=== PATIENT | female | born 1935 | race Caucasian/White ===

== ENCOUNTER 2019-04-14 17:04 | Inpatient (IN) ==
[2019-04-14] MEDS ORDERED: DIPHTHERIA/TETANUS ADULT IM ONE (17:34)
[2019-04-14] MEDS ORDERED: DERMABOND TOP ONE (17:38)
--- NOTE | 2019-04-14 18:42 | Diag Imaging Result Doc PS360 ---
EXAM : CT HEAD/C-SPINE W/O CONTRAST HISTORY: syncope, head injury on Eliquis TECHNIQUE: 1. CT head without intravenous contrast 2. CT cervical spine without intravenous contrast COMPARISON: 07/20/2017 FINDINGS: Head: No parenchymal hemorrhage. No epidural or subdural hematoma. No subarachnoid hemorrhage. Prominent long-standing microvascular ischemic changes as well as atrophy. No mass identified on this noncontrasted exam. No hydrocephalus. No no skull fracture. Cervical spine: There is good alignment to the cervical spine. No precervical soft tissue swelling. No subluxation. No fracture. Moderate degenerative changes. IMPRESSION: Head: No hemorrhage. No injury. Cervical spine: No acute fracture. This exam was performed using automated exposure control, adjustment of mA or kV according to patient size, and/or use of iterative reconstruction technique. Electronically signed by Frederic Whitaker 04/14/2019 6:40 PM
--- NOTE | 2019-04-14 18:56 | PROVIDER DOCUMENTATION ---
This chart was entered by Holli Worrell Scribe, acting as scribe for Jose L Valera MD. HPI-Head Injury - General Source: patient - History of Present Illness-Head Injury Head Injury Location: reports: temporal (right side) Other injuries associated with incident:: reports: neck Quality of Pain: reports: aching Severity: reports: mild Onset/Duration: reports: just prior to arrival Method of Injury: reports: fell Any recent trauma/injury?: reports: minor, to head Loss of Consciousness: unsure Modifying Factors: worse with: palpation Injury Associated Symptoms: reports: denies symptoms Locality of Occurance: Home Similar Symptoms Previously?: Yes Recently seen or treated by another doctor?: No <Jose L Valera - Last Filed: 04/14/19 18:55> <Lesley Huntley - Last Filed: 04/14/19 22:06> - General Chief Complaint: Head Injury Stated Complaint: FALL Time Seen by Provider: 04/14/19 17:20 Allergies/Adverse Reactions: Patient Allergies Allergy/AdvReac Type Severity Reaction Status Date / Time ciprofloxacin [From Cipro] Allergy Mild RASH Verified 08/29/15 12:29 ciprofloxacin HCl * Allergy Mild RASH Verified 08/29/15 12:29 [From Cipro] fenofibrate nanocrystallized Allergy Mild RASH Verified 08/29/15 12:29 * [From Tricor] fenofibrate,micronized * Allergy Mild RASH Verified 08/29/15 12:29 [From Tricor] Penicillins Allergy Unknown Verified 07/20/17 16:49 sucralfate [From Carafate] AdvReac Intermediate NAUSEA Verified 08/29/15 12:29 warfarin sodium * AdvReac Intermediate ABDOMINAL Verified 08/29/15 12:29 [From Coumadin] PAIN metoclopramide AdvReac Mild NAUSEA Verified 08/29/15 12:29 norfloxacin [From Noroxin] AdvReac Mild RASH Verified 08/29/15 12:29 Home Medications: Home Medication List Medication Instructions Recorded Confirmed Last Taken Type Levothyroxine [Synthroid] 25 microgm PO DAILY 09/22/12 04/14/19 08/29/15 History Apixaban [Eliquis] 2.5 mg PO BID 04/25/13 04/14/19 08/28/15 History Esomeprazole Magnesium [Nexium] 40 mg PO DAILY 04/25/13 04/14/19 08/28/15 History Metoprolol [Lopressor] 50 mg PO DAILY 04/25/13 04/14/19 08/28/15 History Bupropion HCl 75 mg PO DAILY 08/29/15 04/14/19 08/28/15 History Sertraline HCl [Zoloft] 100 mg PO DAILY 08/29/15 04/14/19 08/28/15 History - History of Present Illness-Head Injury Nature of Presenting Problem: 83yof presents to ED by EMS cc syncope with injury to right confucianist and skin tear to back of right hand. Pt reports she was putting something on table in dining room, turned around and next thing she knew she was waking up on the floor. Pt is on Eliquis BID daily for Afib and CVA. Pt is A&Ox3 upon exam. (Jose L Valera) Review of Systems - Adult - REVIEW OF SYSTEMS - ADULT Constitutional: reports: see HPI. denies: chills, fever, fatique Eyes: reports: no symptoms reported Ears, Nose, Mouth & Throat: reports: no symptoms reported Cardiovascular: reports: no symptoms reported Respiratory: reports: no symptoms reported Gastrointestinal: reports: no symptoms reported Genitourinary: reports: no symptoms reported Musculoskeletal: reports: see HPI, neck pain, other (contusion to right confucianist) Integumentary: reports: see HPI, other (skin tear to back of right hand) Neurological: reports: see HPI, syncope Psychiatric: reports: no symptoms reported Endocrine: reports: no symptoms reported Hematologic/Lymphatic: reports: no symptoms reported Allergic/Immunologic: reports: no symptoms reported All Other Systems: Reviewed and Negative <Jose L Valera - Last Filed: 04/14/19 18:55> Past History - Adult - PAST MEDICAL HISTORY-ADULT Review of Records: reports: Old Records Reviewed, Nursing Assessment Review, Medications Reviewed, Social history reviewed & non-contributory. Major Childhood Illnesses: reports: denies history Cardiovascular: reports: HTN Respiratory: reports: denies history Gastrointestinal: reports: denies history Obstetrical/Gynecological: reports: denies history Genitourinary: reports: denies history Musculoskeletal: reports: denies history Neurological: reports: CVA Endocrine/Immune: reports: thyroid disorder Other Conditions: reports: denies history - PRIOR SURGERIES/PROCEDURES Surgical/Procedure History: reports: cholecystectomy, hysterectomy, orthopedic (extremity) (total knee), other (thyroidectomy,skin CA removed, Left nephrectomy) - IMMUNIZATION STATUS Childhood Immunizations: See Nurse Assessment Flu Vaccine: See Nurse Assessment - FAMILY HISTORY Family History: reviewed, not pertinent <Jose L Valera - Last Filed: 04/14/19 18:55> Physical Exam- Neurological - Physical Exam-Neuro Initial Vital Signs Reviewed: Yes General Appearance: appears well, alert, no apparent distress. negative: anxious, combative Eye Exam: bilateral eye: normal inspection, PERRL HENMT: normocephalic/atraumatic, moist mucous membranes, hearing deficit. negative: angioedema Head Injury: contusions (to right confucianist). negative: active bleeding, raccoon eyes Neck: C-spine tenderness Respiratory: chest non-tender, lungs clear, normal breath sounds. negative: wheezing Cardiovascular: normal peripheral pulses, regular rate, rhythm, no edema. negative: bradycardia, tachycardia Abdominal Exam: normal bowel sounds, non tender, soft. negative: rebound Extremity: normal inspection, normal capillary refill. negative: deformity seed expert Exam: normal hearing, normal speech, PERRL. negative: facial droop Motor/Sensory: no motor deficit, no sensory deficit Neurologic: seed expert II-XII nml as tested, grossly normal, no motor/sensory deficits Integumentary: other (skin tear to back of right hand). negative: diaphoresis, jaundice, rash Psych/Mental Status: normal mood/affect, oriented x 3. negative: anxious, disheveled - Glascow Coma Scale Best Eye Response: (4) open spontaneously Best Verbal Response: (5) oriented Best Motor Response: (6) obeys commands Total Glascow Score: 15 <Jose L Valera - Last Filed: 04/14/19 18:55> Progress - REASSESSMENT Reassessment #1 Time Reassessed: 18:45 Status: unchanged (imaging wnl: all labs pending) - CHANGE OF SHIFT REPORT (ED Provider) 1 Report Given and Care Transferred to:: Dr. Huntley Time of Transfer: 19:00 <Jose L Valera - Last Filed: 04/14/19 18:55> - PLAN OF CARE/RESULTS Result Diagrams: 02/08/20 18:50 04/14/19 18:50 - CONSULTS/PCP/HOSPITALIST Notification #1 *Consult/PCP/Hospitalist*: Dr Calix Time Discussed: 22:04 Consult Disposition: Admit <Lesley Huntley - Last Filed: 04/14/19 22:06> - PLAN OF CARE/RESULTS Progress/Plan/Lab Results: Vital Signs - 8 hr 04/14/19 17:28 04/14/19 19:04 04/14/19 21:39 Temperature 98.3 F Pulse Rate 79 141 H Pulse Rate [Sitting] 89 Pulse Rate [Standing] 85 Pulse Rate [Supine] 93 H Respiratory Rate 16 16 Blood Pressure 174/115 181/91 Blood Pressure [Sitting] 193/95 Blood Pressure [Standing] 168/65 Blood Pressure [Supine] 138/100 O2 Sat by Pulse Oximetry 98 Laboratory Results - last 24 hr 04/14/19 04/14/19 04/14/19 18:50 18:50 20:50 WBC 9.27 RBC 4.97 Hgb 14.0 Hct 43.5 MCV 87.5 MCH 28.2 MCHC 32.2 L RDW Std Deviation 14.7 H Plt Count 280 MPV 10.2 Immature Gran % (Auto) 0.2 Neut % (Auto) 82.2 H Lymph % (Auto) 11.0 L Shoshone % (Auto) 5.3 Eos % (Auto) 1.1 Baso % (Auto) 0.2 Immature Gran # (Auto) 0.02 Neut # (Auto) 7.62 H Lymph # (Auto) 1.02 L Shoshone # (Auto) 0.49 Eos # (Auto) 0.10 Baso # (Auto) 0.02 Sodium 142 Potassium 4.5 Chloride 106 Carbon Dioxide 24 L Anion Gap 12 BUN 22 Creatinine 1.0 H Estimated GFR/1.73 m2 53 BUN/Creatinine Ratio 22 Glucose 128 H Calculated Osmolality 288 Calcium 9.1 Total Bilirubin 0.31 AST 15 ALT 7 L Alkaline Phosphatase 105 H Total Protein 6.8 Albumin 4.0 Globulin 2.8 Albumin/Globulin Ratio 1.4 Urine Source CATH Urine Color YELLOW Urine Turbidity CLEAR Urine pH 6.0 Ur Specific Ferris 1.017 Urine Protein NEGATIVE Ur Glucose (Stick) NEGATIVE Ur Ketones (Stick) NEGATIVE Urine Blood TRACE A Urine Nitrite NEGATIVE Urine Bilirubin NEGATIVE Urobilinogen Dipstick NORMAL Urine Leukocytes LARGE A Urine WBC (Auto) TNTC A Urine RBC (Auto) <10 U Epithel Cells (Auto) <10 Urine Bacteria (Auto) 4+ Orders Category Date Time Status ED: Orthostatic Vital Signs (E as directed Care 04/14/19 19:36 Active Misc. NRSG Communication Order DIRECTED Care 04/14/19 17:37 Active CHEST-2 VIEWS [RAD] Stat Exams 04/14/19 19:[address] HEAD/C-SPINE W/O CONTRAST [CT] Stat Exams 04/14/19 17:34 Completed CBC WITH DIFF [HEME] Stat Lab 04/14/19 18:50 Completed CMP [COMPREHENSIVE METABOLIC PANEL] [CHEM] Stat Lab 04/14/19 18:50 Completed URINALYSIS W/POSS RFLX CULT [URINALYSIS] Stat Lab 04/14/19 20:50 Completed URINE CULTURE [RM] Routine Lab 04/14/19 20:50 Received Cyanoacrylate Tissue Adhesive [Dermabond] Med 04/14/19 17:38 Discontinued 1 each TOP NOW ONE Diphtheria/Tetanus Adult Med 04/14/19 17:34 Discontinued 0.5 ml IM .ONCE ONE Neomycin/Bacitrcn/Polymyx Oint [Neosporin Ointment Med 04/14/19 19:45 Discontinued Packet] 2 each TOP NOW ONE EKG [EKG] Stat Ther 04/14/19 17:38 Ordered Patient signed out to me pending labs and dispo. Patient with UTI. Went in to speak with daughters. She is on eliquis and has a hx of CVA. She is still complaining of some dizziness and LOVELACE. Spoke to daughters about UTI as wlel. They state she lives with her lederly by themselves. THey are concerned about her fall precuations. Would prefer if she stayed in the hospital for atleast observation and possible rehab placement. Spoke to Dr Calix, program consultant for hosp who accepted patient for admission. Further orders to be placed by their team. (Lesley Huntley) Departure - Departure Date of Disposition Decision: 04/14/19 Certified Medical Emergency: Emergent - Critical Care Note This patient required my direct & personal management of CC.: No <Jose L Valera - Last Filed: 04/14/19 18:55> - Departure Time of Disposition Decision: 22:02 <Lesley Huntley - Last Filed: 04/14/19 22:06> - Departure DIAGNOSIS: Dizziness, Anticoagulant long-term use, Head injury, UTI (urinary tract infection) Disposition: ADMITTED INPATIENT 09 Condition: Stable Additional Instructions: ED Follow Up Instructions: You have been treated by a care provider in the Emergency Department. These instructions are being provided to you so you can have an understanding of how to care for yourself upon discharge. Upon discharge from the Emergency Department, you are responsible for making arrangements for follow-up care by a physician of your choice. Take all prescribed medications as directed. Return to the Emergency Department immediately for any new or worsening symptoms. You may call the Physician Referral phone number at [phone] to obtain a list of Physicians who are taking new patients. Referrals and Follow-Ups: Donn Orourke DO [Primary Care Provider] - Attestation - Physician/ JAYDEN Attestation Patient care was provided by Advanced Practice Provider:: No The physician spent face to face time with patient:: Yes Advanced Practice Provider documentation review:: Supervising physician onsite and consulted in the evaluation and care of this patient. The physician did have a face to face encounter with the patient. <Jose L Valera - Last Filed: 04/14/19 18:55> This chart was documented by the indicated scribe, (Holli Worrell Scribe) and accurately reflects the services I performed and decisions made by me, Jose L Valera MD, as attested by the provider's signature.
[2019-04-14 19:14] LABS: BASO# 0.02 X1000 (0.0-0.2); BASO% 0.2 % (0.0-0.8); EOS% 1.1 % (0.0-10.0); HEMATOCRIT 43.5 % (37.0-47.0); IMM GRAN# 0.02 X1000 (0.0-0.04); IMM GRAN% 0.2 % (0.0-0.5); LYMPH# 1.02 X1000 (1.2-3.4); MCH 28.2 PG (27-31); MCHC 32.2 g/dL (33-37); MCV 87.5 FL (81-99); MONO# 0.49 X1000 (0.11-0.59); MONO% 5.3 % (1.7-9.3); MPV 10.2 FL (7.4-10.4); NEUT# 7.62 X1000 (1.4-6.5); NEUT% 82.2 % (42.2-75.2); PLT 280 X1000 (130-400); RBC 4.97 XMIL (4.2-5.4); RDW 14.7 % (11.5-14.5); WBC 9.27 X1000 (4.8-10.8)
[2019-04-14 19:33] LABS: ALB/GLOB RATIO 1.4; CALCIUM 9.1 mg/dL (8.8-10.2); POTASSIUM 4.5 mmol/L (3.5-5.1); TOTAL BILIRUBIN 0.31 mg/dL (0.20-1.00); TOTAL PROTEIN 6.8 g/dL (6.3-8.3)
[2019-04-14] MEDS ORDERED: NEOSPORIN OINTMENT PACKET TOP ONE (19:45)
--- NOTE | 2019-04-14 20:10 | Diag Imaging Result Doc PS360 ---
EXAM: CHEST-2 VIEWS HISTORY: syncope vs fall TECHNIQUE: Two views COMPARISON: 04/25/2013 FINDINGS: The lungs are well expanded. No contusion. No pneumothorax. The heart is not enlarged. The vessels are not distended. There are no infiltrates. Tiny left effusion. No compressed thoracic vertebra. IMPRESSION: Tiny left pleural effusion. Electronically signed by Frederic Whitaker 04/14/2019 8:08 PM
[2019-04-14 21:12] LABS: URINE SOURCE CATH
[2019-04-14 21:22] LABS: BILIRUBIN URINE NEGATIVE (NEGATIVE); BLOOD URINE TRACE (NEGATIVE); COLOR YELLOW; GLUCOSE URINE NEGATIVE (NEGATIVE); KETONE URINE NEGATIVE (NEGATIVE); LEUKOCYTES URINE LARGE (NEGATIVE); NITRITE URINE NEGATIVE (NEGATIVE); PROTEIN URINE NEGATIVE (NEGATIVE); SP GRAVITY URINE 1.017; TURBIDITY URINE CLEAR (CLEAR); UROBILINOGEN URINE NORMAL (NORMAL)
[2019-04-14 21:24] LABS: UR EPITHELIAL CELLS <10 /HPF (<10); URINE BACTERIA 4+ /HPF; URINE RBC <10 /HPF (<10); URINE WBC TNTC /HPF (<10)
[2019-04-14] MEDS ORDERED: NS 1,000 ML IV ONE (22:03)
[2019-04-14] MEDS ORDERED: ROCEPHIN 1 GM in NS 50 ML IV SCH (22:03)
[2019-04-14] MEDS ORDERED: ZOFRAN IV ONE ×2 (22:14→22:15)
--- NOTE | 2019-04-14 23:44 | HISTORY AND PHYSICAL ---
REASON FOR ADMISSION: Syncope and head injury. PRIMARY CARE PHYSICIAN: Donn Orourke DO. PRESENT ILLNESS: Ms Maria Del Rosario Gutierrez is an 83-year-old white female with past medical history of atrial fibrillation, hypertension and she is also hard of hearing. She reports while she was trying to get into her kitchen from her garage, she felt lightheaded, blacked out and hit the right side of her head against the table. She recalls when she came to that her and the caregiver were standing around her. EMS was called and they brought her in. She reports that she has had a right-sided headache, which has gotten progressively worse over the last few hours. By the time I got into the room to see her, she has been throwing up. Denies any visual complaints. No focal neurological complaints or weakness, numbness or tingling. No palpitations. No antecedent or subsequent palpitations or chest pain. Otherwise, she denies any antecedent complaints of shortness of breath, lower extremity swelling, PND, orthopnea, cough, fever, chills, GI or complaints. Polyuria or polydipsia or bleeding from any orifice. REVIEW OF SYSTEMS: Twelve system review was done, positive findings per HPI. ALLERGIES: Cipro, penicillins, Carafate, warfarin, Reglan, Tricor. HOME MEDICATIONS: Eliquis 2.5 b.i.d., Nexium 40 mg daily, metoprolol 50 mg daily, Wellbutrin 75 mg daily, Zoloft 100 mg daily, Synthroid 25 mcg daily. FAMILY HISTORY: Notable for coronary artery disease. SOCIAL HISTORY: Does not smoke, drink, or use illicit drugs. Lives with her . SURGICAL HISTORY: Hysterectomy, cholecystectomy, total knee replacement. DIAGNOSTIC DATA: White count 9000, hemoglobin and hematocrit 14 and 40, platelets 280,000; 82% neutrophils. BUN is 22, creatinine 1.0. Glucose 128, alkaline phosphatase 105. Urinalysis shows too numerous to count WBCs with 4+ bacteria. Chest film, tiny left pleural effusion. CT head and C-spine shows no acute intracranial injury. C-spine shows no acute fracture. PHYSICAL EXAMINATION: VITAL SIGNS: Her initial blood pressure supine 138/100, heart rate 93. No orthostatics noted. HEAD: Normocephalic. She has slight bruising on the right advent. No overt swelling noted. EYES: JENNIFER, EOMI. Anicteric and not pale. There is some very mild bruising of the right infraorbital area. No tenderness in the left advent area. NEUROLOGIC: Cranial nerves 2-12 are grossly intact. She has no focal neurological deficits appreciated. Strength is 4/5 in all extremities. ENT: Oral exam is grossly normal. Some cyanosis. NECK: Supple. No JVD or carotid bruit. No thyromegaly. CHEST: Clear when auscultated with good air entry both lung weiss. CARDIOVASCULAR: First and 2nd heart sounds heard. No gallops, murmurs, rubs. Rhythm is irregular. ABDOMEN: Full, soft, nontender. No organomegaly. Bowel sounds are normal. RECTAL: Deferred. EXTREMITIES: Good distal pulse volumes which are irregular, symmetrical. No edema, clubbing or cyanosis noted. SKIN: Intact. No breakdown, lesion, erythema. MUSCULOSKELETAL: Grossly normal. ASSESSMENT: 1. Syncope, etiology yet to be determined. 2. Head injury/concussion. 3. Atrial fibrillation. 4. Hypertension. 5. Urinary tract infection. PLAN: Because of patient's sudden vomiting and worsening headache, I have ordered a repeat CT scan to rule out an extradural hematoma. If this is positive, she will need to be sent to [facility]. Otherwise, if it is negative, we will admit patient to a step-down unit and do close neurological checks on the patient. This is primarily due to the fact that the patient is on anticoagulation and she has an injury to the right temporal side of her head, which potentially could increase the risk for extradural hematoma due to the possibility of a middle meningeal artery tear. For now, we will hold anticoagulation over the next 24 to 48 hours. Consult Cardiology for assistance in working up syncope. Withhold also SSRIs, which can put theoretically increased bleeding risk in the short term. Ideally, an MRI would have been the best choice to image for extradural hematoma, this is more sensitive, but we do not have this test at this time of day in our facility. Rocephin will be started for UTI. Cultures need to be followed. cc: MD Donn Mistry, DO
[2019-04-15] MEDS ORDERED: ZOFRAN IV PRN (01:07)
[2019-04-15] MEDS ORDERED: TYLENOL PO PRN (01:07)
--- NOTE | 2019-04-15 01:55 | EKG Report ---
Test Performed on : 04/15/2019 00:26:56 AM Test Reason : syncope Blood Pressure : / mmHG Vent. Rate : 099 BPM Atrial Rate : 101 BPM P-R Int : 000 ms QRS Dur : 068 ms QT Int : 380 ms P-R-T Axes : 000 001 -53 degrees QTc Int : [address] & T wave abnormality, consider anterior ischemia Abnormal ECG When compared with ECG of 29-AUG-2015 12:19, Nonspecific T wave abnormality now evident in Inferior leads T wave inversion more evident in Anterior leads QT has lengthened Confirmed by Johnny CLAY, MMarcus Grider ([id number]) on 04/16/2019 4:14:27 PM
[2019-04-15] MEDS: PRILOSEC PO SCH (06:15)
[2019-04-15 06:33] LABS: BASO# 0.02 X1000 (0.0-0.2); BASO% 0.2 % (0.0-0.8); EOS# 0.02 X1000 (0.0-0.7); EOS% 0.2 % (0.0-10.0); HEMATOCRIT 40.5 % (37.0-47.0); HEMOGLOBIN 12.9 g/dL (12.0-16.0); IMM GRAN# 0.02 X1000 (0.0-0.04); IMM GRAN% 0.2 % (0.0-0.5); LYMPH# 1.04 X1000 (1.2-3.4); LYMPH% 12.4 % (20.5-51.1); MCHC 31.9 g/dL (33-37); MONO# 0.47 X1000 (0.11-0.59); MONO% 5.6 % (1.7-9.3); MPV 10.3 FL (7.4-10.4); NEUT# 6.84 X1000 (1.4-6.5); NEUT% 81.4 % (42.2-75.2); PLT 253 X1000 (130-400); RDW 14.6 % (11.5-14.5); WBC 8.41 X1000 (4.8-10.8)
[2019-04-15] MEDS: NS 1,000 ML IV SCH ×2 (07:17→16:07)
[2019-04-15 07:42] LABS: CALCIUM 8.5 mg/dL (8.8-10.2); CREATININE 0.9 mg/dL (0.5-0.9); POTASSIUM 4.3 mmol/L (3.5-5.1)
--- NOTE | 2019-04-15 07:45 | Diag Imaging Result Doc PS360 ---
EXAM: CT HEAD W/O CONTRAST 04/14/2019 HISTORY: fall today, nausea, vomiting, rescan TECHNIQUE: This exam was performed using automated exposure control, adjustment of mA or kV according to patient size, and/or use of iterative reconstruction technique. COMMENT: There is calcification and slight dolichoectasia of the right vertebral artery. This was also the case at the time the previous study at 1827 and than on 07/20/2017. There are calcifications in the internal carotid arteries. There are marked patchy periventricular and subcortical white matter lucencies bilaterally with patchy lucencies in the internal capsules and basal ganglia and thalami. No evidence of bleed or abnormal extra-axial fluid collection is present. The visualized paranasal sinuses are clear. The calvarium is intact. IMPRESSION: Chronic ischemic microvascular changes and atherosclerotic changes. No evidence of acute intracranial disease. Electronically signed by Robles Morrissey 04/15/2019 7:43 AM
[2019-04-15] MEDS: LOPRESSOR PO SCH (08:39)
[2019-04-15] MEDS: ROCEPHIN 1 GM in NS 50 ML IV SCH (09:32)
--- NOTE | 2019-04-15 10:12 | PROGRESS NOTE ---
DATE: 04/15/2019 SUBJECTIVE: Patient is very hard of hearing. Reports that she is not having any headache. She also denies any dysuria. OBJECTIVE: Vital Signs: Temperature 98.7 degrees, heart rate 72, respiratory rate 18, blood pressure 159/84, O2 saturation 99% on room air. General Examination: This is an 83-year-old, female lying in bed, in no acute distress. Cardiovascular Examination: Irregularly irregular heart rhythm. Respiratory Examination: Clear bilaterally to auscultation. No work of breathing or using any accessory muscles. Abdomen: Soft, nontender to palpation. Bowel sounds present. No organomegaly. Extremities: No clubbing or cyanosis. Peripheral pulses present in both legs. Neurological Examination: The patient is very hard of hearing but followed commands. Moves 4 extremities. Laboratory Data: CBC is okay with hemoglobin 12.9. BMP is also okay with creatinine of 0.9. ASSESSMENT AND PLAN: 1. Syncope of unknown source. That is one reason why this patient was admitted to the hospital so cardiology had been consulted at admission. We will follow recommendations. The patient has chronic atrial fibrillation. 2. Head injury with concussion. Patient has been on Eliquis but that has been held. We have done two CT scans of the head and that did not show any signs of bleeding. We will continue to monitor. 3. Atrial fibrillation. Heart rate is well controlled. That is a chronic condition but we have held anticoagulation at this point. 4. Hypertension. Blood pressure is under control. We will continue with the same management. 5. Urinary tract infection. We will continue with Rocephin. Urine culture is pending. cc: Luis Enrique Cooper MD
--- NOTE | 2019-04-15 12:42 | ECHO REPORT ---
ORDER DATE: 04/15/2019 INTERPRETING PHYSICIAN: Dr. Chandan Jeff. ECHOCARDIOGRAPHIC MEASUREMENTS: 1. Interventricular septum 1.1. 2. Left ventricular posterior wall 1.0. 3. Diastolic diameter 4.0. 4. Left atrium 4.3. 5. Aorta 3.2. SUMMARY OF THE 2-DIMENSIONAL IMAGIN. Aortic valve leaflets were trileaflet, mildly sclerosed, opening normally. 2. Pulmonic valve was normal. There is trace pulmonary regurgitation. 3. Tricuspid valve was normal. 4. Mitral valve was normal. 5. There is biatrial enlargement. 6. Peak velocity across the aortic valve less than 2 m/sec. There is no aortic stenosis. 7. There is mild aortic regurgitation. 8. There is [id number]-[id number] tricuspid regurgitation. Peak velocity across the tricuspid valve was 3.2 m/sec. 9. Pulmonary artery systolic pressure of 45 mmHg. 10. Atrial fibrillation was noted. 11. There is mild mitral regurgitation. 12. [id number]-[id number]-[id number] tricuspid regurgitation. 13. Normal left ventricular cavity size. Estimated ejection fraction of 55%. 14. Endocardium not well visualized in all views. 15. There is no pericardial effusion or obvious intracardiac mass or thrombus seen. cc: MD Robert Dunlap MD
--- NOTE | 2019-04-15 14:40 | CARDIOLOGY CONSULTATION ---
DATE: 04/15/2019 REASON FOR ADMISSION: Patient is admitted with syncope. HISTORY OF PRESENT ILLNESS: This is an 83-year-old lady with a history of hypertension, atrial fibrillation, history of stroke in the past. She went into her kitchen from the garage. She felt lightheaded and blacked out. Hit the right side of her head against the table. EMS was called and brought in. She had a CT scan done. She had complained of headaches. CT scan was negative for any obvious intracranial pathology. At the time of my examination, she does not complain of any headaches. She denies any chest pain. No associated palpitations with this episode of syncope. She had a similar episode of syncope about 3 to 4 years back. REVIEW OF SYSTEM: A 14-point review of systems was done. GI System: There is no history of nausea, vomiting, diarrhea. There is no history of hematemesis or melena. Central nervous system: No focal weakness to suggest a CVA or TIA. Genitourinary System: There is no dysuria or hematuria. PAST MEDICAL HISTORY: 1. Hypertension. 2. Chronic atrial fibrillation. 3. History of CVA in the past. 4. Gastroesophageal reflux disease. ALLERGIES: She is allergic to Cipro, penicillin, Coumadin, Reglan, Tricor, and Carafate. HOME MEDICATIONS: Eliquis 2.5 mg b.i.d., Nexium 40, metoprolol 50, Wellbutrin 75, Zoloft 100, Synthroid 25. SOCIAL HISTORY: She does not smoke. Does not drink. PAST SURGICAL HISTORY: Other surgical history includes total knee replacement, cholecystectomy, hysterectomy. PHYSICAL EXAMINATION: Vital signs: Blood pressure was 138/100. Cardiovascular system: First and second heart sounds were heard. There was no S3 gallop. Respiratory System: Normal air entry. There are no crepitations or rhonchi. Abdomen: Soft, nontender. There was no guarding or rigidity. Bowel sounds were heard. Central nervous system: Alert. Was hard of hearing. No obvious focal neurological deficit. Detailed central nervous system examination not performed. Skin: Mild bruising in the right infraorbital area noted. ASSESSMENT AND PLAN: 1. Ms. Maria Del Rosario Gutierrez is an 83-year-old lady with a history of atrial fibrillation, chronic, hypertension, history of CVA in the past. Has a urinary tract infection. Had a syncopal episode, indeterminate etiology. From a cardiac standpoint, cardiac enzymes are negative. She is in atrial fibrillation. So far, no bradyarrhythmias noted. We will get an echocardiogram. In addition, we will get a Cardiolite stress test Lexiscan to rule out ischemia. We will also get carotid Doppler. 2. Hypertension. Continue with home medication. 3. Atrial fibrillation. She is anticoagulated. I have not made any changes. 4. She has a urinary tract infection. Treatment as planned. Thank you for the consult. cc: MD LEDA Dunlap
[2019-04-16] MEDS: NS 1,000 ML IV SCH ×4 (00:27→21:10)
[2019-04-16] MEDS: PRILOSEC PO SCH (06:21)
--- NOTE | 2019-04-16 07:22 | EKG Report ---
Test Performed on : 04/16/2019 06:55:00 AM Test Reason : fall Blood Pressure : / mmHG Vent. Rate : 077 BPM Atrial Rate : 357 BPM P-R Int : 000 ms QRS Dur : 078 ms QT Int : 450 ms P-R-T Axes : 000 023 025 degrees QTc Int : 509 ms Atrial fibrillation. with premature ventricular or aberrantly conducted complexes. Low voltage QRS Cannot rule out Anterior infarct , age undetermined Abnormal ECG When compared with ECG of 15-APR-2019 00:26, (Unconfirmed) Nonspecific T wave abnormality, improved in Inferior leads T wave inversion no longer evident in Anterior leads Confirmed by Johnny CLAY, Janes Grider ([id number]) on 04/16/2019 4:15:18 PM
--- NOTE | 2019-04-16 08:31 | PROGRESS NOTE ---
DATE: 04/16/2019 SUBJECTIVE: Patient reports feeling okay. No more episodes of loss of consciousness. The patient is very hard of hearing. No acute issues noted as per nursing staff overnight. OBJECTIVE: Vital Signs: Temperature 98.8 degrees, heart rate 73, respiratory rate 18, blood pressure 134/60, O2 saturation 100% on room air. General Examination: This is an 83-year-old, female lying in bed, in no acute distress. Cardiovascular Examination: Irregularly irregular heart rhythm. No murmurs, gallops, or rubs. Respiratory Examination: Clear bilaterally to auscultation. No work of breathing or using accessory muscles. Abdomen: Soft, nontender to palpation. Bowel sounds present. No organomegaly. Extremities: No clubbing, cyanosis, or edema. Peripheral pulses present in both legs. Neurological Examination: The patient is very hard of hearing but followed commands. Moves 4 extremities. Laboratory Data: From yesterday, CBC and BMP were completely okay. ASSESSMENT AND PLAN: 1. Syncope. Patient has been evaluated by cardiology. Considering history of chronic atrial fibrillation, hypertension, and cerebrovascular accident in the past, they will order a Cardiolite stress test Lexiscan to rule out ischemia. Also, carotid Doppler has been ordered. We will follow recommendations. As we mentioned before, patient has not had any more episodes of syncope since she was admitted to the hospital. 2. Head injury and concussion. The patient has been on Eliquis. Clinically, this patient has been okay. Eliquis has been held. Considering that this patient is stable right now, I think we can restart Eliquis today. 3. Chronic atrial fibrillation. Heart rate is well controlled. We are going to restart anticoagulation today. 4. Hypertension. Blood pressure is under control. We will continue with the same management. 5. Urinary tract infection. The urine culture shows gram-negative rods but the final sensitivity is not available yet. We will continue to monitor. 6. Disposition. I think at this point, the patient is much more stable. We will see what the Lexiscan stress test shows and we will go from there. cc: Luis Enrique Cooper MD
[2019-04-16] MEDS ORDERED: LEXISCAN ONE (11:01)
[2019-04-16] MEDS ORDERED: AMINOPHYLLINE ONE (11:22)
[2019-04-16] MEDS: ELIQUIS PO SCH ×2 (13:15→21:09)
[2019-04-16] MEDS: LOPRESSOR PO SCH (13:15)
[2019-04-16] MEDS: ROCEPHIN 1 GM in NS 50 ML IV SCH (13:15)
--- NOTE | 2019-04-16 14:16 | Diag Imaging Result Document ---
PROCEDURE NAME: MYOCARDIAL PERF SCAN, STR/REST - 04/16/2019 INDICATION: Fall. PROCEDURES PERFORMED: 1. Lexiscan stress. 2. One-day stress/rest myocardial perfusion imaging (rest dose 11.7 millicuries, stress dose 35 mCi). LEXISCAN STRESS RESULTS: 1. Baseline EKG appears to show atrial fibrillation. Low voltage. 2. Lexiscan stress not demonstrating clear evidence of ischemic related EKG changes or significant arrhythmias. Occasional PVCs versus aberrantly conducted beats were noted. PERFUSION IMAGING RESULTS: 1. No evidence of abnormal extracardiac uptake. 2. TID ratio is 1.14. On review of splash images there is no evidence of transient ischemic dilatation. 3. Perfusion imaging demonstrates normal homogenous uptake of radiotracer throughout the myocardial segments. No evidence of stress-related defects. 4. Normal ejection fraction of 67%. The end-diastolic volume is 38 and end-systolic volume 13. Normal wall motion is noted. cc: MD Chandan Lea MD
[2019-04-17] MEDS: NS 1,000 ML IV SCH (05:30)
[2019-04-17] MEDS: PRILOSEC PO SCH (06:05)
[2019-04-17 07:57] VITALS: BP 173/100
[2019-04-17] MEDS: ELIQUIS PO SCH (09:15)
[2019-04-17] MEDS: ROCEPHIN 1 GM in NS 50 ML IV SCH (09:15)
[2019-04-17] MEDS: LOPRESSOR PO SCH (09:15)
--- NOTE | 2019-04-17 13:46 | Carotid Study ---
DATE: 04/16/2019 REQUESTING PHYSICIAN: Dr. Jeff. SENIOR SOFTWARE MANAGER: Alfred. INDICATIONS: Syncope. Previous comparison from 09/23/2012. EQUIPMENT: [employer] Vivid E9 ultrasound system a 9 L-D transducer. FINDINGS: Complete diagram of ultrasound images can be seen and scanned in the patient's medical record. The peak systolic velocity done on the right side in the proximal internal carotid artery and is noted to be 61. The peak systolic velocity done on the left side is noted in the distal internal carotid artery is noted to be 67. The calculated internal common ratio on the right is 0.95 and left 1.00. Calculated stenosis on the right 0 to 39 percent, left 0 to 39 percent. There appears to be some atherosclerosis at this time, but does not produce a hemodynamically significant flow-limiting stenosis. Both vertebral arteries were antegrade flow. INTERPRETATION: By strict velocity criteria, no hemodynamically significant flow-limiting stenosis. When compared to previous study, this is essentially stable. cc: MD Chandan Guillory MD
--- NOTE | 2019-04-17 22:42 | DISCHARGE SUMMARY ---
ADMISSION DATE: 04/14/2019 DISCHARGE DATE: 04/17/2019 PRIMARY CARE PHYSICIAN: Dr. Donn Orourke. ADMISSION DIAGNOSIS: 1. Syncope. 2. Head injury/concussion. 3. Atrial fibrillation. 4. Hypertension. 5. Urinary tract infection. DISCHARGE DIAGNOSIS: 1. Syncope, resolved. 2. Head injury and concussion, improved. 3. Chronic atrial fibrillation. 4. Hypertension. 5. Escherichia coli urinary tract infection. SUMMARY OF FINDINGS: This is an 83-year-old female who presented after she was trying to get into her kitchen from her garage, felt lightheaded, blacked out and hit the right side of her head against the table. EMS was notified and brought patient to the emergency room. She reported that she had a right-sided headache that had gotten progressively worse over the last few hours prior to arriving. By the time she was admitted she was throwing up. Denied any visual complaints. No focal neurological complaints or weakness, numbness or tingling. Her CT of the head showed chronic ischemic microvascular changes and atherosclerotic changes but no evidence of an acute intracranial disease. We did a echocardiogram on 04/15/2019 that showed an ejection fraction of 55%. Cardiology was consulted to follow this patient. They did a myocardial perfusion scan on 04/16/2019 that showed no evidence of abnormal extracardiac uptake. Perfusion imaging demonstrated normal homogeneous uptake. No evidence of stress related defects. So it is now felt that she can safely be discharged home today with [facility]. DISCHARGE MEDICATIONS: Will include Eliquis 2.5 mg p.o. b.i.d., Nexium 40 mg p.o. daily, metoprolol 50 mg p.o. daily, bupropion 75 mg p.o. daily, Keflex 500 mg p.o. t.i.d. #21, levothyroxine 25 mcg p.o. daily, sertraline 100 mg p.o. daily. FOLLOWUP: She will need to follow up with her primary care physician in the next 1 to 2 weeks and call their office for an appointment. All discharge instructions were reviewed with the patient and she verbalized understanding. TIME SPENT: 35 minutes. Dictated by COCO Zhong for Luis Enrique Cooper MD Addendum: Patient seen and examined by myself. Agree with C[facility] note. It reflects my assessment and plan. Patient is being discharged in stable condition. Will be see by PCP in one to two weeks. cc: DO Luis Enrique Maradiaga MD [id number]
== END 2019-04-17 12:26 | disposition home health service (06) | DRG 89 ==
LOC: SUPCPDRO → ED 17:04 → 2N 22:54 → SUATTDRO 22:54 → 2N 23:19
PROVIDERS: ATTEND Internal Medicine